=== PATIENT | female | born 1940 | race Caucasian/White ===

== ENCOUNTER → 2017-06-29 | Outpatient (CLI) | payer MEDICARE, MEDICAID ==
[2014-04-16 09:37] VITALS: BMI 29.8
[~2017-06-29] MED LIST: ACE325 PO; ASPI-715 PO; ATOR10TA24 PO; ATOR20TA22 PO; Aspirin PO; BUPXL150 PO; CARB400T8 PO; CEP250 PO; CEPH500T7 PO; CLON-303 PO; Cefuroxime Axetil PO; DIVA-1 PO; DIVA250T86 PO; DONE10TA PO; FOL1 PO; LAM25 PO; LAMO100T52 PO; LEVO100T95 PO; LEVO150T72 PO; LIT300 PO; METH15TA4 PO; METH25VI31 SC; METHOTREXATE; MULT-820 PO; NAPR220C13 PO; NIT100 PO; OMEG-84 PO; OMEG-95 PO; PAR20 PO; PREDNISONE; PRIM50TA42 PO; QUET200T29 PO; SERT-181 PO; SERT-182 PO; TOPI25CA9 PO; [UNRECOGNIZED DRUG - CODE] PO
[2017-06-29 09:16] LABS: LDL CHOLESTEROL 115 mg/dl
== END ==
LOC: ZZSPRING 00:41
PROVIDERS: ATTEND Physician Assistant
DX: E78.00 Pure hypercholesterolemia, unspecified (principal); E11.9 Type 2 diabetes mellitus without complications; E03.9 Hypothyroidism, unspecified
CPT/HCPCS: 36415; 82040; 82247; 82310; 82374; 82435; 82465; 82565; 82947; 83036; 83718; 84075; 84132; 84155; 84295; 84443; 84450; 84460; 84478; 84520

== ENCOUNTER → 2017-07-13 | Outpatient (CLI) | payer MEDICARE, MEDICAID ==
[2014-04-16 09:37] VITALS: BMI 29.8
[2017-07-13 08:48] LABS: LDL CHOLESTEROL 87 mg/dl
== END ==
LOC: ZZSPRING 07-12 07:53
PROVIDERS: ATTEND Physician Assistant
DX: E78.00 Pure hypercholesterolemia, unspecified (principal); E11.9 Type 2 diabetes mellitus without complications; E03.9 Hypothyroidism, unspecified
CPT/HCPCS: 36415; 82040; 82247; 82310; 82374; 82435; 82465; 82565; 82947; 83036; 83718; 84075; 84132; 84155; 84295; 84443; 84450; 84460; 84478; 84520

== ENCOUNTER → 2017-10-05 | Outpatient (CLI) | payer MEDICARE, MEDICAID ==
[2014-04-16 09:37] VITALS: BMI 29.8
== END ==
LOC: ZZSPRING 01:36
PROVIDERS: ATTEND Physician Assistant
DX: E78.00 Pure hypercholesterolemia, unspecified (principal); E11.9 Type 2 diabetes mellitus without complications; E03.9 Hypothyroidism, unspecified
CPT/HCPCS: 36415; 82465; 83036; 83718; 84443; 84478

== ENCOUNTER → 2017-11-30 | Outpatient (CLI) | payer MEDICARE, MEDICAID ==
[2014-04-16 09:37] VITALS: BMI 29.8
--- NOTE | 2017-11-30 17:44 | RADIOLOGY IMAGING REPORT ---
FACILITY: [facility] - [place] PATIENT NAME: Christine Ornelas : 1940 MR: [id number] V: [id number] EXAM DATE: ORDERING PHYSICIAN: QUIN MARIANO TECHNOLOGIST: Location: [facility] - [place] Patient: Christine Ornelas : 1940 Visit/Account:[id number] Date of Sevice: 11/30/2017 Exam type: CERVICAL SPINE 2 OR 3 VIEW History: Neck pain Comparison: September 21, 2012. Findings: Three views of the cervical spine demonstrate moderate degenerative changes at C5-6 and C6-7 that aubrey ears similar to the prior study. There is a 2 mm anterior listhesis of C4 with respect to C5 likely degenerative. There is no evidence of acute fractures or subluxations or prevertebral soft tissue sw elling. IMPRESSION: 1. Spondylotic changes of the cervical spine most prominent at C5-6 and C6-7 Report Dictated By: Concepcion Brito MD at 11/30/2017 5:39 PM Report E-Signed By: Concepcion Brito MD at 11/30/2017 5:41 PM WSN:[email or web address]
== END ==
LOC: RAD 16:38
PROVIDERS: ATTEND Family Medicine
DX: M54.2 Cervicalgia (principal)
CPT/HCPCS: 72040

== ENCOUNTER → 2018-05-10 | Outpatient (CLI) | payer MEDICARE, MEDICAID ==
[2014-04-16 09:37] VITALS: BMI 29.8
--- NOTE | 2018-05-10 15:29 | RADIOLOGY IMAGING REPORT ---
FACILITY: [facility] - [place] PATIENT NAME: Christine Ornelas : 1940 MR: [id number] V: [id number] EXAM DATE: ORDERING PHYSICIAN: MARK ACOSTA TECHNOLOGIST: Location: [facility] Patient: Christine Ornelas : 1940 Visit/Account:[id number] Date of Sevice: 05/10/2018 Exam type: CHEST PA LAT History: Bronchitis Comparison: March 24, 2016. Findings: There is mild increased peribronchial thickening seen in the lower lung cortez, left greater than rig ht. This corresponds to the clinical history of bronchitis. No lobar infiltrates are seen. There i s no evidence of pleural effusions or overt pulmonary edema. Cardiac silhouette is normal in size. IMPRESSION: 1. Mild peribronchial thickening in the lower lung cortez, left greater than right consistent with t he history of bronchitis Report Dictated By: Concepcion Brito MD at 05/10/2018 3:13 PM Report E-Signed By: Concepcion Brito MD at 05/10/2018 3:14 PM WSN:[email or web address]
== END ==
LOC: RAD 10:45
PROVIDERS: ATTEND Physician Assistant
DX: J20.9 Acute bronchitis, unspecified (principal)
CPT/HCPCS: 71046

== ENCOUNTER 2018-06-26 20:49 | Inpatient (IN) | payer MEDICARE, MEDICAID ==
[~2018-06-26] VITALS: Ht 165.1 cm; Wt 75.3 kg
[~2018-06-26 20:49] MED LIST changes: -ACET-1966 PO; -BENZ100C4 PO; -CYCL10TA29 PO; -DEXT1DRO15 OP; -DEXT237L PO; -DOCU-416 PO; -DuoNeb INH; -FLAV100L PO; -FLUT1AER INH; -GUAI600T57 PO; -LEVO-3 PO; -LIDO15SO2 TOP; -LOPE2CAP88 PO; -MAG-65 PO; -MELO-205 PO; -OSE75 PO; -OXYB5TAB86 PO; -PIOG30TA71 PO; -POLY17PO25 PO; -PRIM50TA FT; -QUET50TA PO; -SERT25TA90 PO; -SIMV-54 PO; -SITA100T PO; -SODI45SP29
--- NOTE | 2018-06-26 20:53 | ER Report ---
History and Physical Time Seen By MD: 20:53 HPI/ROS CHIEF COMPLAINT: Fall, fever 102 HISTORY OF PRESENT ILLNESS: 78-year-old female brought from [facility] after a fall. Patient has a loose tooth is bloody in her mouth. Nursing staff report that she is more hypoxic than usual on her 3 L.. They turned her up to 4 to get her saturations in the upper 80s. EMS administered high flow O2 to get her saturations into the 90s. She voices no complaints, but has dementia. She is also hard of hearing. See senior living paperwork for additional information. Patient is DO NOT RESUSCITATE status. EMS noted loose tooth and bleeding in her mouth. She was placed in a cervical spine collar by EMS. Patient appears in no acute distress on arrival. His mentating normally, but is very hard of hearing. REVIEW OF SYSTEMS: Respiratory: As above Cardiovascular: No chest pain, no palpitations. Gastrointestinal: No vomiting, no abdominal pain. Musculoskeletal: No back pain. Allergies: Coded Allergies: No Known Allergies (Verified Allergy, Mild, 09/07/10) Home Meds Active Scripts Atorvastatin Calcium (LIPITOR) 10 Mg Tab, 20 MG PO QHS, #30 TAB Prov:NGOC VAZQUEZ MD 04/16/14 Reported Medications Sodium Chloride (Saline Mist) 0.65 % [place], 1-2 NA QID 06/27/18 Dextromethorphan Hb/Doxylamine (Robitussin Nighttime Cough Dm) 30 Mg-12.5 Mg/10 Ml Liquid, 5 ML PO Q4H PRN for COUGH 06/27/18 Guaifenesin (MUCINEX) 600 Mg Tablet.er, 600 MG PO BID PRN for COUGH 06/27/18 Polyethylene Glycol 3350 (MIRALAX) 17 Gm Powd.pack, 17 GM PO PRN PRN for CONSTIPATION, PKT 06/27/18 Mag Hydrox/Aluminum Hyd/Simeth (Maalox Advanced Suspension) 200 Mg-200 Mg-20 Mg/5 Ml Oral.susp, 15 ML PO Q4H PRN for GAS/HEARTBURN 06/27/18 Lidocaine HCl VISCOUS 2% (Lidocaine Viscous) 2 % Solution, TOP PRN PRN for PAIN 06/27/18 [DuoNeb] No Conflict Check, INH PRN for SHORTNESS OF BREATH 06/27/18 Loperamide Hcl (LOPERAMIDE) 2 Mg Capsule, 2 MG PO BID PRN for DIARRHEA, CAPSULE 06/27/18 Cyclobenzaprine Hcl (CYCLOBENZAPRINE HCL) 10 Mg Tablet, 5 MG PO BID PRN for MUSCLE SPASMS, #9 TAB 06/27/18 Docusate Sodium (COLACE) 100 Mg Capsule, 50 MG PO DAILY PRN for CONSTIPATION, CAPSULE 06/27/18 Bay Flavor (BAY CONCENTRATE) 100 Ml Syrup, 100 ML PO HS PRN for COUGH 06/27/18 Benzonatate 100 Mg Cap (TESSALON PERLE 100 MG CAP) 100 Mg Capsule, 100 MG PO HS PRN for COUGH, #15 CAP 06/27/18 Dextran 70/Hypromellose (ARTIFICIAL TEARS) 1 Each Droperette, 1 EACH OP 06/27/18 Acetaminophen (TYLENOL) 325 Mg Tablet, 325-650 MG PO Q4H PRN for PAIN OR FEVER 100 OR GREATER, TAB 06/27/18 Simvastatin (SIMVASTATIN) 40 Mg Tablet, 40 MG PO HS, TAB 06/27/18 Sertraline Hcl (SERTRALINE HCL) 25 Mg Tablet, 1 TAB PO QDAY, TAB 06/27/18 Sertraline Hcl (SERTRALINE HCL) 100 Mg Tablet, 1 TAB PO QDAY, TAB 06/27/18 Quetiapine Fumarate (QUETIAPINE FUMARATE) 50 Mg Tablet, 50 MG PO HS 06/27/18 Primidone (PRIMIDONE) 50 Mg Tab, 25 MG FT, TAB 06/27/18 Pioglitazone Hcl (PIOGLITAZONE HCL) 30 Mg Tablet, 30 MG PO QDAY 06/27/18 Oxybutynin Chloride (OXYBUTYNIN CHLORIDE) 5 Mg Tablet, 5 MG PO BID, TAB 06/27/18 Meloxicam (MELOXICAM) 7.5 Mg Tablet, 7.5 MG PO QDAY 06/27/18 Levothyroxine Sodium (LEVOTHYROXINE SODIUM) 100 Mcg Tablet, 88 MCG PO QDAY, TAB 06/27/18 Sitagliptin Phosphate (JANUVIA) 100 Mg Tablet, 100 MG PO QDAY 06/27/18 Fluticasone/Vilanterol 100/25 Mcg/Inh (BREO ELLIPTA 100/25 MCG) 1 Each Aer.pow.ba, 1 INH INH QDAY, INH 06/27/18 Methotrexate Sodium (METHOTREXATE) 25 Mg/1 Ml Vial, 0.4 ML SC QWEEK, VIAL 12/18/14 Donepezil Hcl (Donepezil Hcl) 10 Mg Tablet, 10 MG PO HS 09/07/10 Lamotrigine (Lamotrigine) 100 Mg Tablet, 150 MG PO HS 09/09/10 Folic Acid (Folic Acid) 1 Mg Tab, 1 MG PO QDAY 09/07/10 Cholecalciferol (Vitamin D3) 1,000 Unit Capsule, 2000 UNIT PO QDAY 09/07/10 Discontinued Reported Medications Meloxicam (MELOXICAM) 7.5 Mg Tablet, 7.5 MG PO QDAY 06/27/18 Sertraline Hcl (SERTRALINE HCL) 100 Mg Tablet, 1 TAB PO HS, TAB TAKE ONE TABLET BY MOUTH EVERY DAY 04/12/14 Divalproex Sodium (DEPAKOTE ER) 500 Mg Tab.er.24h, 500 MG PO HS, TAB TAKE 1 TABLET BY MOUTH DAILY 04/12/14 [place]-3 Fatty Acids/Fish Oil ([place]-3 1,000 Mg Softgel) 1 Each Capsule, 2 EACH PO BID 09/09/10 Levothyroxine Sodium (Synthroid) 100 Mcg Tablet, 100 MCG PO HS 09/07/10 Quetiapine Fumarate (Seroquel) 200 Mg Tablet, 100 MG PO HS 09/09/10 Primidone (Primidone) 50 Mg Tablet, 75 MG PO HS 09/09/10 Discontinued Scripts [Cefuroxime Axetil] 250 MG TAB No Conflict Check, 250 MG PO BID, #10 TAB Prov:NGOC VAZQUEZ MD 04/16/14 [Aspirin] 81 MG TABEC No Conflict Check, 81 MG PO QDAY, #30 TAB Prov:NGOC VAZQUEZ MD 04/16/14 Past Medical/Surgical History Medical problem list copied from discharge summary March 2018 (1) Urinary tract infection Status: Acute Hospital Course & Plan: The patient was admitted with weakness and UTI. A urine culture was positive for AEROCOCCUS URINAE, but sensitivities were not yet available at the time of discharge as this bacteria could not be tested with methods used at [facility]. Per literature review, this bacteria should be sensitive to the penicillin family. She was placed on treatment with ceftriaxone and vancomycin initially intravenously. The vancomycin was stopped on 04/14. She improved and then was switched to oral medication today, Ceftin 250mg bid. The patient will go to [facility] upon discharge. (2) Weakness Status: Acute Hospital Course & Plan: The patient was noted to have significant generalized weakness on admission. PT and OT were consulted and the patient received therapy. She had improvement of her weakness. She will go to [facility] upon discharge. (3) Bipolar disorder Status: Chronic Hospital Course & Plan: She will continue on chronic treatment with Depakote, Seroquel, and Lamictal at discharge. (4) History of pulmonary embolism Status: Chronic Hospital Course & Plan: She was placed on Lovenox prophylaxis during her admission. (5) Essential tremor Status: Chronic Hospital Course & Plan: She is on chronic treatment with Primidone and will continue this on discharge. (6) Hyperlipidemia Status: Chronic Hospital Course & Plan: She is on chronic treatment with Atorvastatin and will continue this at discharge. (7) Hypothyroid Status: Chronic Hospital Course & Plan: She is on chronic treatment with Synthroid and will continue this at discharge. (8) Rheumatoid arthritis Status: Chronic Hospital Course & Plan: She is on chronic treatment with methotrexate, but this was placed on hold secondary to her infection. She can resume it the week of the 22 of April. Departure Reviewed Nurses Notes: Yes Old Medical Records Reviewed: Yes Hx Smoking: No Hx Substance Use Disorder: No Hx Alcohol Use: Yes (OCC WINE) Constitutional Vital Sign - Last 24 Hours 06/26/18 06/26/18 06/26/18 06/26/18 20:57 21:00 21:02 21:15 Temp 102.5 Pulse 83 Resp 18 B/P (MAP) 127/65 127/65 (85) 129/66 (87) Pulse Ox 87 O2 Delivery Nasal Cannula O2 Flow Rate 10.0 06/26/18 06/26/18 06/26/18 06/26/18 21:19 21:30 21:46 21:49 Pulse 83 78 Resp 0 27 B/P (MAP) ???/??? (1665) 121/62 (81) Pulse Ox 92 92 06/26/18 06/26/18 06/26/18 06/26/18 22:00 22:15 22:15 22:19 Pulse 77 Resp 29 B/P (MAP) 114/63 (80) 120/51 (74) Pulse Ox 91 O2 Flow Rate 4.0 3/07/1206/26/18 06/26/18 06/26/18 22:30 22:35 22:45 23:00 Pulse 74 Resp 26 B/P (MAP) 119/70 (86) 124/65 (84) 120/59 (79) Pulse Ox 91 06/26/18 06/26/18 06/26/18 06/26/18 23:05 23:15 23:30 23:35 Pulse 73 70 Resp 11 39 B/P (MAP) 115/61 (79) 123/64 (83) Pulse Ox 91 93 06/26/18 06/26/18 06/27/18 23:40 23:45 00:00 Pulse 75 Resp 10 B/P (MAP) 116/56 (76) 116/59 (78) Pulse Ox 88 Physical Exam General Appearance: The patient is alert, has no immediate need for airway protection and no current signs of toxicity. Vital signs stable, fever 102, pulse ox stable on high flow O2 4 L by simple mask on palpation of the head and neck reveal no tenderness or trauma HEENT: Pupils equal and round no injection. TMs normal, oropharynx with mild erythema, mucous membranes are slightly dry Respiratory: Chest is non tender, lungs are clear to auscultation. No wheezing or rails appreciated Cardiac: regular rate and rhythm, distant heart sounds Gastrointestinal: Abdomen is soft and non tender, no masses, bowel sounds normal. Musculoskeletal: Neck: Neck is supple and non tender. No lymphadenopathy, no JVD Extremities have full range of motion and are non tender. No edema, no calf tenderness Skin: No rashes or lesions. DIFFERENTIAL DIAGNOSIS: After history and physical exam differential diagnosis was considered for adult fever including but not limited to viral syndromes including influenza, urinary tract infection, pneumonia and sepsis.fall in the elderly including but not limited to intracranial injury, long bone and pelvic bone fracture, spinal injury, and intrathoracic injury. Medical Decision Making Data Points Result Diagram: 06/26/18210906/26/182109 Laboratory Hematology Test 06/26/18 21:10 06/26/18 21:15 06/26/18 22:18 Red Blood Count 4.03 M/uL (4.17-5.56) Mean Corpuscular Volume 89.8 fL (80.0-96.0) Mean Corpuscular Hemoglobin 30.2 pg (26.0-33.0) Mean Corpuscular Hemoglobin Concent 33.6 g/dL (32.0-36.0) Red Cell Distribution Width 20.3 % (11.5-14.5) Mean Platelet Volume 8.0 fL (7.2-11.1) Neutrophils (%) (Auto) 93.7 % (39.4-72.5) Lymphocytes (%) (Auto) 1.7 % (17.6-49.6) Monocytes (%) (Auto) 3.3 % (4.1-12.4) Eosinophils (%) (Auto) 0.3 % (0.4-6.7) Basophils (%) (Auto) 1.0 % (0.3-1.4) Nucleated RBC Relative Count (auto) 0.1 /100WBC Neutrophils # (Auto) 5.8 K/uL (2.0-7.4) Lymphocytes # (Auto) 0.1 K/uL (1.3-3.6) Monocytes # (Auto) 0.2 K/uL (0.3-1.0) Eosinophils # (Auto) 0.0 K/uL (0.0-0.5) Basophils # (Auto) 0.1 K/uL (0.0-0.1) Nucleated RBC Absolute Count (auto) 0.01 K/uL Peripheral Blood Smear No Y/N Sodium Level 130 mmol/L (137-145) Potassium Level 4.3 mmol/L (3.5-5.0) Chloride Level 95 mmol/L (98-107) Carbon Dioxide Level 26 mmol/L (22-31) Blood Urea Nitrogen 13 mg/dl (7-18) Creatinine 0.60 mg/dl (0.52-1.04) Glomerular Filtration Rate Calc > 60.0 Random Glucose 220 mg/dl (75-110) Lactate 0.9 mmol/L (0.7-2.1) Calcium Level 9.2 mg/dl (8.4-10.2) Total Bilirubin 0.6 mg/dl (0.2-1.3) Aspartate Amino Transf (AST/SGOT) 39 U/L (0-35) Alanine Aminotransferase (ALT/SGPT) 34 U/L (0-56) Alkaline Phosphatase 81 U/L (0-126) Total Protein 6.2 g/dl (6.3-8.2) Albumin 3.6 g/dl (3.5-5.0) Valproic Acid (Depakene) Level < 10.0 ug/ml Influenza Virus Type A (PCR) Positive (NEGATIVE) Influenza Virus Type B (PCR) Negative (NEGATIVE) Urine Color Yellow Urine Clarity Slightly-cloudy Urine pH 5.0 pH (4.8-9.5) Urine Specific [place] 1.019 Urine Protein Negative mg/dL (NEGATIVE) Urine Glucose (UA) 50 mg/dL (NEGATIVE) Urine Ketones Trace mg/dL (NEGATIVE) Urine Blood Negative (NEGATIVE) Urine Nitrite Positive (NEGATIVE) Urine Bilirubin Negative (NEGATIVE) Urine Urobilinogen Negative mg/dL (0.2-1.9) Urine Leukocyte Esterase Moderate (NEGATIVE) Urine RBC 7 /HPF (0-2/HPF) Urine WBC 199 /HPF (0-5/HPF) Urine Squamous Epithelial Cells Many /LPF (NONE-FEW) Urine Transitional Epithelial Cells Moderate /LPF (NONE-FEW) Urine Bacteria Many /HPF (NONE-FEW) Urine Mucus Few /HPF (NONE-FEW) Chemistry Test 06/26/18 21:10 06/26/18 21:15 06/26/18 22:18 White Blood Count 6.2 k/uL (4.5-11.0) Red Blood Count 4.03 M/uL (4.17-5.56) Hemoglobin 12.2 g/dL (12.0-16.0) Hematocrit 36.2 % (34.0-47.0) Mean Corpuscular Volume 89.8 fL (80.0-96.0) Mean Corpuscular Hemoglobin 30.2 pg (26.0-33.0) Mean Corpuscular Hemoglobin Concent 33.6 g/dL (32.0-36.0) Red Cell Distribution Width 20.3 % (11.5-14.5) Platelet Count 192 K/uL (150-450) Mean Platelet Volume 8.0 fL (7.2-11.1) Neutrophils (%) (Auto) 93.7 % (39.4-72.5) Lymphocytes (%) (Auto) 1.7 % (17.6-49.6) Monocytes (%) (Auto) 3.3 % (4.1-12.4) Eosinophils (%) (Auto) 0.3 % (0.4-6.7) Basophils (%) (Auto) 1.0 % (0.3-1.4) Nucleated RBC Relative Count (auto) 0.1 /100WBC Neutrophils # (Auto) 5.8 K/uL (2.0-7.4) Lymphocytes # (Auto) 0.1 K/uL (1.3-3.6) Monocytes # (Auto) 0.2 K/uL (0.3-1.0) Eosinophils # (Auto) 0.0 K/uL (0.0-0.5) Basophils # (Auto) 0.1 K/uL (0.0-0.1) Nucleated RBC Absolute Count (auto) 0.01 K/uL Peripheral Blood Smear No Y/N Glomerular Filtration Rate Calc > 60.0 Lactate 0.9 mmol/L (0.7-2.1) Calcium Level 9.2 mg/dl (8.4-10.2) Total Bilirubin 0.6 mg/dl (0.2-1.3) Aspartate Amino Transf (AST/SGOT) 39 U/L (0-35) Alanine Aminotransferase (ALT/SGPT) 34 U/L (0-56) Alkaline Phosphatase 81 U/L (0-126) Total Protein 6.2 g/dl (6.3-8.2) Albumin 3.6 g/dl (3.5-5.0) Valproic Acid (Depakene) Level < 10.0 ug/ml Influenza Virus Type A (PCR) Positive (NEGATIVE) Influenza Virus Type B (PCR) Negative (NEGATIVE) Urine Color Yellow Urine Clarity Slightly-cloudy Urine pH 5.0 pH (4.8-9.5) Urine Specific [place] 1.019 Urine Protein Negative mg/dL (NEGATIVE) Urine Glucose (UA) 50 mg/dL (NEGATIVE) Urine Ketones Trace mg/dL (NEGATIVE) Urine Blood Negative (NEGATIVE) Urine Nitrite Positive (NEGATIVE) Urine Bilirubin Negative (NEGATIVE) Urine Urobilinogen Negative mg/dL (0.2-1.9) Urine Leukocyte Esterase Moderate (NEGATIVE) Urine RBC 7 /HPF (0-2/HPF) Urine WBC 199 /HPF (0-5/HPF) Urine Squamous Epithelial Cells Many /LPF (NONE-FEW) Urine Transitional Epithelial Cells Moderate /LPF (NONE-FEW) Urine Bacteria Many /HPF (NONE-FEW) Urine Mucus Few /HPF (NONE-FEW) Toxicology Test 06/26/18 21:10 Valproic Acid (Depakene) Level < 10.0 ug/ml Urinalysis Test 06/26/18 22:18 Urine Color Yellow Urine Clarity Slightly-cloudy Urine pH 5.0 pH (4.8-9.5) Urine Specific [place] 1.019 Urine Protein Negative mg/dL (NEGATIVE) Urine Glucose (UA) 50 mg/dL (NEGATIVE) Urine Ketones Trace mg/dL (NEGATIVE) Urine Blood Negative (NEGATIVE) Urine Nitrite Positive (NEGATIVE) Urine Bilirubin Negative (NEGATIVE) Urine Urobilinogen Negative mg/dL (0.2-1.9) Urine Leukocyte Esterase Moderate (NEGATIVE) Urine RBC 7 /HPF (0-2/HPF) Urine WBC 199 /HPF (0-5/HPF) Urine Squamous Epithelial Cells Many /LPF (NONE-FEW) Urine Transitional Epithelial Cells Moderate /LPF (NONE-FEW) Urine Bacteria Many /HPF (NONE-FEW) Urine Mucus Few /HPF (NONE-FEW) EKG/Imaging EKG Interpretation 12 lead EK Rhythm: normal sinus rhythm Raymond: normal QRS: normal ST segments: normal, no acute ischemic findings Imaging X-ray: Angle view portable chest x-ray was obtained. I viewed the images myself on the PACS system. My interpretation of the images is: No raudel infiltrate, there is some haziness to the right lung field. The radiologist interpretation had no clinically significant variation from this interpretation. Results: CT scan of the head and cervical spine without contrast was obtained. The results of the study are no acute traumatic findings, maxillary sinus disease noted. Please see report. The study was read by the radiologist. I viewed the images myself on the PACS system. ED Course/Re-evaluation Clinical Indication for ER IV: Hydration, IV Access ED Course Patient was admitted to an examination room. H&P was done. The differential diagnoses was considered. Patient was brought from care center after a fall. Patient noted behind more hypoxic than usual on her 3 L. She was increased to 4 L by nasal cannula with borderline oxygen saturations. Patient was noted to have a tooth injury by EMS. They placed her in a cervical collar. On arrival. Palpation of the head reveals no tenderness, but a head CT and cervical spine CT are ordered. They're unremarkable. Diagnostic evaluation is undertaken for a fever of 102. Patient's white blood cell count is normal, but there is a left shift. Her lactate returns normal. Patient is cultured. A catheter urine was obtained which showed infection. Rapid influenza was positive for influenza A. She was treated with Tamiflu 75 mg. She was given 1 g of Rocephin to cover her for urinary tract infection. Her chest x-ray showed no infiltrates. Patient still requiring significant O2 beyond her normal baseline at 4 L by simple mask, making saturations in the low 90s. Her case was discussed with Dr. Maria hospitalist on-call, who evaluated the patient and decided to admit. 06/26/2018 11:03:59 pm case discussed with Dr. Maria hospitalist on-call, who will come evaluate the patient and consideration of admission. Decision to Disposition Date: Jun 26, 2018 Decision to Disposition Time: 23:03 Depart Departure Latest Vital Signs Vital Signs Date Time Temp Pulse Resp B/P (MAP) Pulse Ox O2 Delivery O2 Flow Rate FiO2 06/27/18 00:00 116/59 (78) 06/26/18 23:40 75 10 88 06/26/18 22:15 4.0 06/26/18 20:57 102.5 Nasal Cannula Impression: Primary Impression: Hypoxia Additional Impressions: Influenza A Urinary tract infection Fall Hyponatremia Condition: Improved Disposition: Admitted from ER Problem Qualifiers Additional Impressions: Urinary tract infection Urinary tract infection type: acute cystitis Hematuria presence: without hematuria Qualified Codes: N30.00 - Acute cystitis without hematuria Fall Encounter type: initial encounter Qualified Codes: W19.XXXA - Unspecified fall, initial encounter TABITHA WESTON DO Jun 26, 2018 20:53
[2018-06-26] MEDS ORDERED: NS(*) 0.9% 1000 ML BAG 1,000 ML IV ONE (21:05)
[2018-06-26] MEDS ORDERED: ACETAMINOPHEN 325 MG TAB PO ONE (21:05)
[2018-06-26 21:24] LABS: PLATELET COUNT, AUTOMATED 192 K/uL (150-450)
--- NOTE | 2018-06-26 22:11 | RADIOLOGY IMAGING REPORT ---
FACILITY: [facility] [place] PATIENT NAME: Christine Onrelas : 1940 MR: [id number] V: [id number] EXAM DATE: ORDERING PHYSICIAN: TABITHA WESTON TECHNOLOGIST: [place] [facility] [place] : 1940 Visit/Account:[id number] Date of Sevice: 06/26/2018 CT Head without contrast and CT Cervical spine: Indication: Fever. Fall. Comparison: MR brain 01/04/2014. Technique: CT head: Axial CT images were obtained through the brain from the skull base to the verte x without administration of IV contrast. Reformatted coronal and sagittal images were also obtained. Technique: CT cervical spine: Axial CT imaging of the cervical spine was performed. 2-D sagittal and coronal CT reformats were also obtained. One of the following dose optimization techniques was utilized in the performance of this exam: Autom ated exposure control; adjustment of the mA and/or kV according to the patient's size; or use of an i terative reconstruction technique. Specific details can be referenced in the facility's radiology C T exam operational policy. FINDINGS: CT head: No intracranial bleed, midline shift, mass effect, extra-axial fluid collection or hydrocephalus. Age -related cerebral atrophy. Periventricular white matter ischemic changes consistent small vessel dise ase. Toro/white matter differentiation appears normal. Mild bilateral internal carotid artery calcifi cations. The bony structures show no fractures or lesions. Mild mucosal thickening/fluid seen in the right maxillary sinus. The remaining sinuses and mastoids visualized are clear. CT cervical spine: The vertebral bodies are aligned. No fracture or facet dislocation. No bony lesions. There is diffuse mild to moderate degenerative changes including disc space narrowing, endplate changes, osteophytes and facet arthropathy. No bony canal stenosis. Multilevel neural foramina narrowing. The endplates ar e maintained. No obvious disc herniation. Prevertebral soft tissues and surrounding soft tissues are unremarkable. Lung apices are clear. IMPRESSION: 1. Senescent changes without acute abnormality. No skull fracture. 2. No acute osseous or acute alignment abnormality of the cervical spine. Degenerative changes. 3. Right maxillary sinus disease. Report Dictated By: Jaswinder Oakley at 06/26/2018 9:57 PM Report E-Signed By: Jaswinder Oakley at 06/26/2018 10:07 PM WSN:[id number]
--- NOTE | 2018-06-26 22:12 | RADIOLOGY IMAGING REPORT ---
FACILITY: [facility] PATIENT NAME: Christine Ornelas : 1940 MR: [id number] V: [id number] EXAM DATE: ORDERING PHYSICIAN: TABITHA WESTON TECHNOLOGIST: Location: [facility] Patient: Christine Ornelas : 1940 Visit/Account:[id number] Date of Sevice: 06/26/2018 CT Head without contrast and CT Cervical spine: Indication: Fever. Fall. Comparison: MR brain 01/04/2014. Technique: CT head: Axial CT images were obtained through the brain from the skull base to the verte x without administration of IV contrast. Reformatted coronal and sagittal images were also obtained. Technique: CT cervical spine: Axial CT imaging of the cervical spine was performed. 2-D sagittal and coronal CT reformats were also obtained. One of the following dose optimization techniques was utilized in the performance of this exam: Autom ated exposure control; adjustment of the mA and/or kV according to the patient's size; or use of an i terative reconstruction technique. Specific details can be referenced in the facility's radiology C T exam operational policy. FINDINGS: CT head: No intracranial bleed, midline shift, mass effect, extra-axial fluid collection or hydrocephalus. Age -related cerebral atrophy. Periventricular white matter ischemic changes consistent small vessel dise ase. Toro/white matter differentiation appears normal. Mild bilateral internal carotid artery calcifi cations. The bony structures show no fractures or lesions. Mild mucosal thickening/fluid seen in the right maxillary sinus. The remaining sinuses and mastoids visualized are clear. CT cervical spine: The vertebral bodies are aligned. No fracture or facet dislocation. No bony lesions. There is diffuse mild to moderate degenerative changes including disc space narrowing, endplate changes, osteophytes and facet arthropathy. No bony canal stenosis. Multilevel neural foramina narrowing. The endplates ar e maintained. No obvious disc herniation. Prevertebral soft tissues and surrounding soft tissues are unremarkable. Lung apices are clear. IMPRESSION: 1. Senescent changes without acute abnormality. No skull fracture. 2. No acute osseous or acute alignment abnormality of the cervical spine. Degenerative changes. 3. Right maxillary sinus disease. Report Dictated By: Jaswinder Oakley at 06/26/2018 9:57 PM Report E-Signed By: Jaswinder Oakley at 06/26/2018 10:07 PM WSN:[id number]
--- NOTE | 2018-06-26 22:15 | RADIOLOGY IMAGING REPORT ---
FACILITY: [facility] PATIENT NAME: Christine Ornelas : 1940 MR: [id number] V: [id number] EXAM DATE: ORDERING PHYSICIAN: TABITHA WESTON TECHNOLOGIST: Location: [facility] [place] Patient: Christine Ornelas : 1940 Visit/Account:[id number] Date of Sevice: 06/26/2018 PORTABLE CHEST: Indication: Fever. Possible injury. Technique: A single frontal film was obtained. Comparison: 05/10/2018 Skeletal and soft tissue structures: Intact and unchanged. Heart and mediastinum: Stable. Lung crotez: Well-expanded. There are chronic increased interstitial markings. No focal consolidation or volume loss is identified. Pleural spaces: Unremarkable. Impression: No acute process or significant change is identified. Report Dictated By: Tae Negrete MD at 06/26/2018 10:10 PM Report E-Signed By: Tae Negrete MD at 06/26/2018 10:12 PM WSN:[id number]
[2018-06-26] MEDS ORDERED: OSELTAMIVIR PHOS 75 MG CAP PO ONE (22:40)
[2018-06-26] MEDS ORDERED: cefTRIAXone 1 GM VIAL IVP ONE (22:40)
--- NOTE | 2018-06-26 23:33 | EKG ---
[place] [facility] [place]IENT NAME: DILLON STUBBS : [id number] MR: [id number] V: [id number] EXAM DATE: ORDERING PHYSICIAN: TABITHA WESTON TECHNOLOGIST: HUGO Test Reason : FALL Blood Pressure : / mmHG Vent. Rate : 082 BPM Atrial Rate : 082 BPM P-R Int : 160 ms QRS Dur : 094 ms QT Int : 362 ms P-R-T Axes : 059 056 047 degrees QTc Int : 422 ms Normal sinus rhythm Normal ECG When compared with ECG of 11-APR-2014 10:45, No significant change was found Confirmed by QUINTIN LEMUS ([id number]) on 06/26/2018 11:40:16 PM Referred By: Confirmed By:QUINTIN LEMUS
[2018-06-26] MEDS ORDERED: PROMETHAZINE 25 MG/ML 1 ML AMP IVP PRN (23:40)
[2018-06-26] MEDS ORDERED: INSULIN HUM LISPRO 100 UN/ML 3 ML VIAL SUBQ PRN (23:40)
[2018-06-26] MEDS ORDERED: QUEtiapine FUM 25 MG TAB PO SCH (23:40)
[2018-06-26] MEDS ORDERED: INFLUENZA VIRUS VAC 0.5ML SYR IM ONLY ONE (23:40)
[2018-06-26] MEDS ORDERED: ALBUTEROL 2.5 MG/3 ML NEB NEB PRN (23:40)
[2018-06-27] MEDS ORDERED: SERT-181 PO (00:04)
[2018-06-27] MEDS ORDERED: LEVO-3 PO (00:04)
[2018-06-27] MEDS ORDERED: CYCL10TA29 PO (00:04)
[2018-06-27] MEDS ORDERED: BENZ100C4 PO (00:04)
[2018-06-27] MEDS ORDERED: SITA100T PO (00:04)
[2018-06-27] MEDS ORDERED: FLUT1AER INH (00:04)
[2018-06-27] MEDS ORDERED: DEXT1DRO15 OP (00:04)
[2018-06-27] MEDS ORDERED: PIOG30TA71 PO (00:04)
[2018-06-27] MEDS ORDERED: QUET50TA PO (00:04)
[2018-06-27] MEDS ORDERED: MELO-205 PO ×2 (00:04)
[2018-06-27] MEDS ORDERED: LOPE2CAP88 PO (00:04)
[2018-06-27] MEDS ORDERED: PRIM50TA FT (00:04)
[2018-06-27] MEDS ORDERED: OXYB5TAB86 PO (00:04)
[2018-06-27] MEDS ORDERED: FLAV100L PO (00:04)
[2018-06-27] MEDS ORDERED: DOCU-416 PO (00:04)
[2018-06-27] MEDS ORDERED: ACET-1966 PO (00:04)
[2018-06-27] MEDS ORDERED: SIMV-54 PO (00:04)
[2018-06-27] MEDS ORDERED: SERT25TA90 PO (00:04)
--- NOTE | 2018-06-27 00:14 | History & Physical ---
History of Present Illness History of Present Illness 78yo female with bipolar disorder and a possible h/o asthma who was brought to the ER for a fall. She has been having vomiting for a couple of days. She normally wears O2, but was found off her O2 after her fall. She also has had a cough since April. She was reportedly treated with antibiotics in April for a pneumonia, per the patient's Granddaughter. She denies dysuria, but has had more frequency. No LE edema. The patient denies any h/o smoking. She doesn't drink alcohol. She lives at [facility]. In the ER, she was given Tamiflu, Rocephin, APAP and a liter of fluid. History Problems: (1) Rheumatoid arthritis Status: Chronic (2) Essential tremor Status: Chronic (3) Bipolar disorder Status: Chronic (4) Hyperlipidemia Status: Chronic (5) Hypothyroid Status: Chronic (6) History of pulmonary embolism Status: Chronic (7) History of UTI Status: Chronic Home Meds Active Scripts [Cefuroxime Axetil] 250 MG TAB No Conflict Check, 250 MG PO BID, #10 TAB Prov:NGOC VAZQUEZ MD 04/16/14 [Aspirin] 81 MG TABEC No Conflict Check, 81 MG PO QDAY, #30 TAB Prov:NGOC VAZQUEZ MD 04/16/14 Atorvastatin Calcium (LIPITOR) 10 Mg Tab, 20 MG PO QHS, #30 TAB Prov:NGOC VAZQUEZ MD 04/16/14 Reported Medications Methotrexate Sodium (METHOTREXATE) 25 Mg/1 Ml Vial, 0.4 ML SC QWEEK, VIAL 04/12/14 Sertraline Hcl (SERTRALINE HCL) 100 Mg Tablet, 1 TAB PO HS, TAB TAKE ONE TABLET BY MOUTH EVERY DAY 04/12/14 Divalproex Sodium (DEPAKOTE ER) 500 Mg Tab.er.24h, 500 MG PO HS, TAB TAKE 1 TABLET BY MOUTH DAILY 04/12/14 Laporte-3 Fatty Acids/Fish Oil (Laporte-3 1,000 Mg Softgel) 1 Each Capsule, 2 EACH PO BID 09/09/10 Levothyroxine Sodium (Synthroid) 100 Mcg Tablet, 100 MCG PO HS 09/07/10 Quetiapine Fumarate (Seroquel) 200 Mg Tablet, 100 MG PO HS 09/09/10 Donepezil Hcl (Donepezil Hcl) 10 Mg Tablet, 10 MG PO HS 09/07/10 Lamotrigine (Lamotrigine) 100 Mg Tablet, 100 MG PO HS 09/09/10 Primidone (Primidone) 50 Mg Tablet, 75 MG PO HS 09/09/10 Folic Acid (Folic Acid) 1 Mg Tab, 1 MG PO QDAY 09/07/10 Cholecalciferol (Vitamin D3) 1,000 Unit Capsule, 2000 UNIT PO QDAY 09/07/10 Allergies: Coded Allergies: No Known Allergies (Verified Allergy, Mild, 09/07/10) Hx Smoking: No Caffeine Intake: Coffee Caffeine/Cups Per Day: 1 cup a day Hx Alcohol Use: Yes (OCC WINE) Hx Substance Use Disorder: No Review of Systems All Systems Reviewed/Normal: Yes, Except as Noted Exam Vital Signs Vital Signs Date Time Temp Pulse Resp B/P (MAP) Pulse Ox O2 Delivery O2 Flow Rate FiO2 06/26/18 22:30 119/70 (86) 06/26/18 22:19 77 29 91 06/26/18 22:15 4.0 06/26/18 20:57 102.5 Nasal Cannula General Appearance: Alert, Awake, No Acute Distress Neuro: No Gross deficits Eyes: PERRLA ENT: Moist Mucous Membranes, Posterior Pharynx Clear, Other (Front right maxillary incisor and the tooth to the right are loose) Cardiovascular: Regular Rate and Rhythm Respiratory: Other (Diffuse coarse BS and exp wheezes) GI: Abd Soft and Non-Tender Extremities: No Edema Integumentary: No Cyanosis Medical Decision Making Data Points Result Diagram: 06/26/18210906/26/182109 Item Value Date Time Lactate 0.9 mmol/L 06/26/182109 Total Bilirubin 0.6 mg/dl 06/26/182109 Aspartate Amino Transf (AST/SGOT) 39 U/L H 06/26/182109 Alanine Aminotransferase (ALT/SGPT) 34 U/L 06/26/182109 Alkaline Phosphatase 81 U/L 06/26/182109 Calcium Level 9.2 mg/dl 06/26/182109 Valproic Acid (Depakene) Level < 10.0 ug/ml 06/26/182109 Influenza Virus Type A (PCR) Positive 06/26/182114 Neutrophils (%) (Auto) 93.7 % H 06/26/182109 Lymphocytes (%) (Auto) 1.7 % L 06/26/182109 Monocytes (%) (Auto) 3.3 % L 06/26/182109 Urine Leukocyte Esterase Moderate H 06/26/182217 Urine RBC 7 /HPF 06/26/182217 Urine WBC 199 /HPF 06/26/182217 Urine Squamous Epithelial Cells Many /LPF H 06/26/182217 Urine Transitional Epithelial Cells Moderate /LPF H 06/26/182217 Urine Bacteria Many /HPF H 06/26/182217 Urine Nitrite Positive H 06/26/182217 Urine Glucose (UA) 50 mg/dL H 06/26/182217 EKG / Imaging EKG Interpretation Vent. Rate : 082 BPM Atrial Rate : 082 BPM P-R Int : 160 ms QRS Dur : 094 ms QT Int : 362 ms P-R-T Axes : 059 056 047 degrees QTc Int : 422 ms Normal sinus rhythm Normal ECG When compared with ECG of 11-APR-2014 10:45, No significant change was found Confirmed by QUINTIN LEMUS ([id number]) on 06/26/2018 11:40:16 PM Imaging Cervical Spine CT - 1. Senescent changes without acute abnormality. No skull fr acture. 2. No acute osseous or acute alignment abnormality of the cervical spine. Degenerative changes. 3. Right maxillary sinus disease. CXR - No acute process or significant change is identified. Head CT - 1. Senescent changes without acute abnormality. No skull fracture. 2. No acute osseous or acute alignment abnormality of the cervical spine. Degen erative changes. 3. Right maxillary sinus disease. Assessment and Plan Problems: (1) Influenza A Status: Acute Assessment & Plan: She presented with a couple days of vomiting and had a fall today. She was febrile to 102.5 in the ER. She has had a cough since mid- March. Tamiflu has been started, which will be continued. She will given scheduled DuoNebs, and prn albuterol. Repeat CXR in the morning. (2) Hypoxia Status: Acute Assessment & Plan: She is chronically on 4 liters of O2. She initially required 10 liters in the ER, but now is down to 4 liters. She is chronically on Breo Ellipta, so will change to Advair in the hospital. She was wheezy on exam, but breathing comfortably. Nebs as above. Might consider steroids if lungs continue to be wheezy. (3) Hyponatremia Status: Acute Assessment & Plan: Mild. Will follow. (4) Pyuria Status: Acute Assessment & Plan: Increased urinary frequency recently. She was given a dose of Rocephin in the ER. Many SCE on UA. Will stop for now. Urine culture pe nding. (5) Bipolar disorder Status: Chronic Assessment & Plan: Continue chronic Sertraline, Seroquel, Lamotrigine. (6) Essential tremor Status: Chronic Assessment & Plan: Continue chronic Primidone. (7) T2DM (type 2 diabetes mellitus) Status: Chronic Assessment & Plan: Continue chronic Januvia and Actos. AC and HS glucose with SSI level 2 to cover. Copies to: MARK ACOSTA PA-C ; Venous Thromboembolism Antithrombotics Is Pt On Any Antithrombotics?: No Exam Sepsis Risk: No Definite Risk QUINTIN LEMUS MD Jun 27, 2018 00:14
[2018-06-27] MEDS ORDERED: POLY17PO25 PO (00:32)
[2018-06-27] MEDS ORDERED: MAG-65 PO (00:32)
[2018-06-27] MEDS ORDERED: DuoNeb INH (00:32)
[2018-06-27] MEDS ORDERED: DEXT237L PO (00:32)
[2018-06-27] MEDS ORDERED: LIDO15SO2 TOP (00:32)
[2018-06-27] MEDS ORDERED: GUAI600T57 PO (00:32)
[2018-06-27] MEDS ORDERED: SODI45SP29 (00:33)
[2018-06-27 00:37] VITALS: BP 105/55
[2018-06-27 03:12] VITALS: BP 120/54
[2018-06-27] MEDS: ALBUTEROL/IPRATROPIUM 3 ML NEB NEB SCH ×2 (05:43→11:00)
[2018-06-27] MEDS ORDERED: SALMETEROL/FLUTIC 250/50 1 INH INH SCH (06:00)
[2018-06-27] MEDS ORDERED: LEVOTHYROXINE SOD 0.088 MG TAB PO SCH (06:00)
--- NOTE | 2018-06-27 08:16 | RADIOLOGY IMAGING REPORT ---
FACILITY: [facility] - [place] PATIENT NAME: Christine Ornelas : 1940 MR: [id number] V: [id number] EXAM DATE: ORDERING PHYSICIAN: QUINTIN LEMUS [place]CHN[place] [facility] [place] Or[place] : 1940 Visit/Account:[id number] Date of Sevice: 06/27/2018 Study: Single portable view of the chest. Indication: Hypoxia Comparison study: June 26, 2018 Technique: Single AP view of the chest demonstrates the presence of a right upper lobe infiltrate. Th is is worsened as compared to the previous study. There is no evidence of pleural effusion or pneumot horax. The visualized bony structures are unremarkable. IMPRESSION: Right upper lobe infiltrate, most consistent with pneumonia. Report Dictated By: Osito Farias at 06/27/2018 8:06 AM Report E-Signed By: Osito Farias at 06/27/2018 8:11 AM WSN:[id number]
[2018-06-27 08:36] VITALS: BP 118/58
[2018-06-27] MEDS ORDERED: PRIMIDONE 50 MG TAB PO SCH (09:00)
[2018-06-27] MEDS ORDERED: SERTRALINE HCL 50 MG TAB PO SCH (09:00)
[2018-06-27] MEDS ORDERED: ENOXAPARIN 40 MG/0.4ML SYR SC SCH (09:00)
[2018-06-27] MEDS ORDERED: OSELTAMIVIR PHOS 75 MG CAP PO SCH (09:00)
[2018-06-27] MEDS ORDERED: FOLIC ACID 1 MG TAB PO SCH (09:00)
[2018-06-27] MEDS ORDERED: PIOGLITAZONE HCL 15 MG TAB PO SCH (09:00)
[2018-06-27] MEDS ORDERED: lamoTRIgine 100 MG TAB PO SCH (09:00)
[2018-06-27] MEDS ORDERED: DONEPEZIL HCL 5 MG TAB PO SCH (09:00)
[2018-06-27] MEDS ORDERED: OXYBUTYNIN CHL 5 MG TAB PO SCH (09:00)
[2018-06-27] MEDS ORDERED: OSE75 PO (10:18)
--- NOTE | 2018-06-27 10:22 | Hospitalist Depart ---
Discharge Summary Reason for Hosp/Final Diag: (1) Influenza A Status: Acute Hospital Course & Plan: She did test positive for influenza A. She has been started on Tamiflu. (2) Hypoxia Status: Acute Hospital Course & Plan: She is on chronic treatment with oxygen. (3) Hyponatremia Status: Acute Hospital Course & Plan: Stable and required no specific treatment. (4) Pyuria Status: Acute Hospital Course & Plan: She did have pyuria on a urine sample, but it was contaminated. (5) Bipolar disorder Status: Chronic Hospital Course & Plan: Continue chronic Sertraline, Seroquel, Lamotrigine. (6) Essential tremor Status: Chronic Hospital Course & Plan: Continue chronic Primidone. (7) T2DM (type 2 diabetes mellitus) Status: Chronic Hospital Course & Plan: Continue chronic Januvia and Actos. AC and HS glucose with SSI level 2 to cover. Departure Latest Vital Signs v Vital Signs 06/27/18 08:36 Temp 98.1 Pulse 72 Resp 24 B/P (MAP) 118/58 (78) Pulse Ox 92 O2 Delivery Nasal Cannula O2 Flow Rate 3.0 Weight (Pounds): 166 Result Diagram: 06/26/18210906/26/182109 Condition: Improved Discharge: Assisted Living Discharge Instructions Home Meds Active Scripts Oseltamivir Phosphate (TAMIFLU) 75 Mg Cap, 75 MG PO BID, #10 CAP Prov:QUIN NICHOLSON DO 06/27/18 Atorvastatin Calcium (LIPITOR) 10 Mg Tab, 20 MG PO QHS, #30 TAB Prov:NGOC VAZQUEZ MD 04/16/14 Reported Medications Sodium Chloride (Saline Mist) 0.65 % Dorris, 1-2 NA QID 06/27/18 Dextromethorphan Hb/Doxylamine (Robitussin Nighttime Cough Dm) 30 Mg-12.5 Mg/10 Ml Liquid, 5 ML PO Q4H PRN for COUGH 06/27/18 Guaifenesin (MUCINEX) 600 Mg Tablet.er, 600 MG PO BID PRN for COUGH 06/27/18 Polyethylene Glycol 3350 (MIRALAX) 17 Gm Powd.pack, 17 GM PO PRN PRN for CONSTIPATION, PKT 06/27/18 Mag Hydrox/Aluminum Hyd/Simeth (Maalox Advanced Suspension) 200 Mg-200 Mg-20 Mg/5 Ml Oral.susp, 15 ML PO Q4H PRN for GAS/HEARTBURN 06/27/18 Lidocaine HCl VISCOUS 2% (Lidocaine Viscous) 2 % Solution, TOP PRN PRN for PAIN 06/27/18 [DuoNeb] No Conflict Check, INH PRN for SHORTNESS OF BREATH 06/27/18 Loperamide Hcl (LOPERAMIDE) 2 Mg Capsule, 2 MG PO BID PRN for DIARRHEA, CAPSULE 06/27/18 Cyclobenzaprine Hcl (CYCLOBENZAPRINE HCL) 10 Mg Tablet, 5 MG PO BID PRN for MUSCLE SPASMS, #9 TAB 06/27/18 Docusate Sodium (COLACE) 100 Mg Capsule, 50 MG PO DAILY PRN for CONSTIPATION, CAPSULE 06/27/18 Dextran 70/Hypromellose (ARTIFICIAL TEARS) 1 Each Droperette, 1 EACH OP 06/27/18 Acetaminophen (TYLENOL) 325 Mg Tablet, 325-650 MG PO Q4H PRN for PAIN OR FEVER 100 OR GREATER, TAB 06/27/18 Simvastatin (SIMVASTATIN) 40 Mg Tablet, 40 MG PO HS, TAB 06/27/18 Sertraline Hcl (SERTRALINE HCL) 25 Mg Tablet, 1 TAB PO QDAY, TAB 06/27/18 Sertraline Hcl (SERTRALINE HCL) 100 Mg Tablet, 1 TAB PO QDAY, TAB 06/27/18 Quetiapine Fumarate (QUETIAPINE FUMARATE) 50 Mg Tablet, 50 MG PO HS 06/27/18 Primidone (PRIMIDONE) 50 Mg Tab, 25 MG FT, TAB 06/27/18 Pioglitazone Hcl (PIOGLITAZONE HCL) 30 Mg Tablet, 30 MG PO QDAY 06/27/18 Oxybutynin Chloride (OXYBUTYNIN CHLORIDE) 5 Mg Tablet, 5 MG PO BID, TAB 06/27/18 Meloxicam (MELOXICAM) 7.5 Mg Tablet, 7.5 MG PO QDAY 06/27/18 Levothyroxine Sodium (LEVOTHYROXINE SODIUM) 100 Mcg Tablet, 88 MCG PO QDAY, TAB 06/27/18 Sitagliptin Phosphate (JANUVIA) 100 Mg Tablet, 100 MG PO QDAY 06/27/18 Fluticasone/Vilanterol 100/25 Mcg/Inh (BREO ELLIPTA 100/25 MCG) 1 Each Aer.pow.ba, 1 INH INH QDAY, INH 06/27/18 Methotrexate Sodium (METHOTREXATE) 25 Mg/1 Ml Vial, 0.4 ML SC QWEEK, VIAL 04/12/14 Donepezil Hcl (Donepezil Hcl) 10 Mg Tablet, 10 MG PO HS 09/07/10 Lamotrigine (Lamotrigine) 100 Mg Tablet, 150 MG PO HS 09/09/10 Folic Acid (Folic Acid) 1 Mg Tab, 1 MG PO QDAY 09/07/10 Cholecalciferol (Vitamin D3) 1,000 Unit Capsule, 2000 UNIT PO QDAY 09/07/10 Discontinued Reported Medications Meloxicam (MELOXICAM) 7.5 Mg Tablet, 7.5 MG PO QDAY 06/27/18 Bay Flavor (BAY CONCENTRATE) 100 Ml Syrup, 100 ML PO HS PRN for COUGH 06/27/18 Benzonatate 100 Mg Cap (TESSALON PERLE 100 MG CAP) 100 Mg Capsule, 100 MG PO HS PRN for COUGH, #15 CAP 06/27/18 Sertraline Hcl (SERTRALINE HCL) 100 Mg Tablet, 1 TAB PO HS, TAB TAKE ONE TABLET BY MOUTH EVERY DAY 04/12/14 Divalproex Sodium (DEPAKOTE ER) 500 Mg Tab.er.24h, 500 MG PO HS, TAB TAKE 1 TABLET BY MOUTH DAILY 04/12/14 Tenino-3 Fatty Acids/Fish Oil (Tenino-3 1,000 Mg Softgel) 1 Each Capsule, 2 EACH PO BID 09/09/10 Levothyroxine Sodium (Synthroid) 100 Mcg Tablet, 100 MCG PO HS 09/07/10 Quetiapine Fumarate (Seroquel) 200 Mg Tablet, 100 MG PO HS 09/09/10 Primidone (Primidone) 50 Mg Tablet, 75 MG PO HS 09/09/10 Discontinued Scripts [Cefuroxime Axetil] 250 MG TAB No Conflict Check, 250 MG PO BID, #10 TAB Prov:NGOC VAZQUEZ MD 04/16/14 [Aspirin] 81 MG TABEC No Conflict Check, 81 MG PO QDAY, #30 TAB Prov:NGOC VAZQUEZ MD 04/16/14 Diet: Diabetic Activity: As Tolerated Venous Thromboembolism Antithrombotics Is Pt On Any Antithrombotics?: No QUIN NICHOLSON DO Jun 27, 2018 10:22
[2018-06-27 13:48] VITALS: Ht 165.1 cm; Wt 75.3 kg
[2018-06-27 14:20] VITALS: BP 118/62
== END 2018-06-27 15:05 | disposition home or self-care (01) | DRG 194 ==
LOC: ER 21:04 → MED 06-27 00:04
PROVIDERS: ADMIT Internal Medicine; ATTEND Internal Medicine
DX: J10.1 Influenza due to other identified influenza virus with other respiratory manifestations (principal); E87.1 Hypo-osmolality and hyponatremia; R09.02 Hypoxemia; E11.9 Type 2 diabetes mellitus without complications; Z66 Do not resuscitate; F31.9 Bipolar disorder, unspecified; R25.1 Tremor, unspecified; F03.90 Unspecified dementia, unspecified severity, without behavioral disturbance, psychotic disturbance, mood disturbance, and anxiety; E78.5 Hyperlipidemia, unspecified; E03.9 Hypothyroidism, unspecified; M06.9 Rheumatoid arthritis, unspecified; W18.30XA Fall on same level, unspecified, initial encounter; Y92.129 Unspecified place in nursing home as the place of occurrence of the external cause; Z87.440 Personal history of urinary (tract) infections; Z79.84 Long term (current) use of oral hypoglycemic drugs; Z86.711 Personal history of pulmonary embolism
CPT/HCPCS: 36415; 36416; 70450; 71045; 72125; 80164; 81001; 82040; 82247; 82310; 82374; 82435; 82565; 82947; 82948; 83605; 84075; 84132; 84155; 84295; 84450; 84460; 84520; 85025; 87040; 87077; 87088; 87186; 87502; 93005; 94640; 96361; 96372; 96374; 99285; J0696; J1650; J7030

== ENCOUNTER → 2018-06-26 | Outpatient (CLI) | payer MEDICARE, MEDICAID ==
[~2018-06-26] MED LIST changes: +ACET-1966 PO; +BENZ100C4 PO; +CYCL10TA29 PO; +DEXT1DRO15 OP; +DEXT237L PO; +DOCU-416 PO; +DuoNeb INH; +FLAV100L PO; +FLUT1AER INH; +GUAI600T57 PO; +LEVO-3 PO; +LIDO15SO2 TOP; +LOPE2CAP88 PO; +MAG-65 PO; +MELO-205 PO; +OSE75 PO; +OXYB5TAB86 PO; +PIOG30TA71 PO; +POLY17PO25 PO; +PRIM50TA FT; +QUET50TA PO; +SERT25TA90 PO; +SIMV-54 PO; +SITA100T PO; +SODI45SP29
[2018-06-27 13:48] VITALS: BMI 27.6
== END ==
LOC: AMB 20:34
PROVIDERS: ATTEND Nurse Practitioner
DX: R41.82 Altered mental status, unspecified (principal); R09.02 Hypoxemia; R53.1 Weakness
CPT/HCPCS: A0425; A0429

== ENCOUNTER → 2018-08-16 | Outpatient (CLI) | payer MEDICARE, MEDICAID ==
[2018-06-27 13:48] VITALS: BMI 27.6
[~2018-08-16] MED LIST changes: +ACET-1966 PO; +BENZ100C4 PO; +CYCL10TA29 PO; +DEXT1DRO15 OP; +DEXT237L PO; +DOCU-416 PO; +DuoNeb INH; +FLAV100L PO; +FLUT1AER INH; +GUAI600T57 PO; +LEVO-3 PO; +LIDO15SO2 TOP; +LOPE2CAP88 PO; +MAG-65 PO; +MELO-205 PO; +OSE75 PO; +OXYB5TAB86 PO; +PIOG30TA71 PO; +POLY17PO25 PO; +PRIM50TA FT; +QUET50TA PO; +SERT25TA90 PO; +SIMV-54 PO; +SITA100T PO; +SODI45SP29
== END ==
LOC: ZZSPRING 02:37
PROVIDERS: ATTEND Physician Assistant
DX: Z51.81 Encounter for therapeutic drug level monitoring (principal)
CPT/HCPCS: 36415; 80175

== ENCOUNTER → 2018-09-13 | Outpatient (REF) | payer MEDICARE, MEDICAID ==
[2018-06-27 13:48] VITALS: BMI 27.6
== END ==
LOC: ZZSENDIN 09:46
PROVIDERS: ATTEND Family Medicine
DX: R60.0 Localized edema (principal)
CPT/HCPCS: 83880

== ENCOUNTER → 2018-09-13 | Outpatient (CLI) | payer MEDICARE, MEDICAID ==
[2018-06-27 13:48] VITALS: BMI 27.6
--- NOTE | 2018-09-13 12:20 | RADIOLOGY IMAGING REPORT ---
[place] [facility] [place]: Christine Ornelas : 1940 MR: [id number] V: [id number] EXAM DATE: ORDERING PHYSICIAN: CHUCK LINTON TECHNOLOGIST: Location: [facility] Patient: Christine Ornelas : 1940 Visit/Account:[id number] Date of Sevice: 09/13/2018 CT CHEST W/O CONTRAST HISTORY: Chronic cough TECHNIQUE: CT chest without intravenous contrast. Contiguous helical images was performed from the l kayce apices to below the diaphragm. One of the following dose optimization techniques was utilized in the performance of this exam: Autom ated exposure control; adjustment of the mA and/or kV according to the patient's size; or use of an i terative reconstruction technique. Specific details can be referenced in the facility's radiology C T exam operational policy. CONTRAST: None. COMPARISON: Chest x-ray 06/27/2018 FINDINGS: Heart/vessels: Heart is enlarged. Calcification of the thoracic arch and coronary vessels is noted Mediastinum: Negative. Lymph nodes: Slightly prominent mediastinal lymph nodes could be reactive. Index lymph nodes describ ed below. 2.5 x 0.7 cm prevascular lymph node (2/33) Precarinal lymph node measures 1.9 x 0.9 cm (2/37) Lungs/pleura: Patient has a background of mild bronchiectasis. There are focal areas of consolidatio n in the lingula, right middle lobe and right lower lobe which could represent pneumonia. Trace right -sided pleural effusion is noted. Visualized upper abdomen: 7 mm hypodensity in the dome of liver could represent a cyst but is not en tirely characterized. Bones/soft tissues: Patient is osteopenic with degenerative changes. Mild superior plate compression deformities of T12, T9 and T3 are chronic when compared to prior chest x-rays IMPRESSION: 1. Focal areas of consolidation in the left lingula, right middle lobe and right lower lobe with a s mall right effusion could represents pneumonia. 2. Mild bronchiectasis. 3. Slightly prominent mediastinal lymph nodes could be reactive. Report Dictated By: Jaswinder Yepez MD at 09/13/2018 12:07 PM Report E-Signed By: Jaswinder Yepez MD at 09/13/2018 12:16 PM WSN:[id number]
== END ==
LOC: CT 11:07
PROVIDERS: ATTEND Family Medicine
DX: J98.09 Other diseases of bronchus, not elsewhere classified (principal)
CPT/HCPCS: 71250

== ENCOUNTER → 2018-10-11 | Outpatient (CLI) | payer MEDICARE, MEDICAID ==
[2018-06-27 13:48] VITALS: BMI 27.6
[2018-10-11 10:20] LABS: LDL CHOLESTEROL 100 mg/dl
== END ==
LOC: ZZSPRING 01:38
PROVIDERS: ATTEND Physician Assistant
DX: E78.00 Pure hypercholesterolemia, unspecified (principal); E11.9 Type 2 diabetes mellitus without complications; E03.9 Hypothyroidism, unspecified
CPT/HCPCS: 36415; 82040; 82247; 82310; 82374; 82435; 82465; 82565; 82947; 83036; 83718; 84075; 84132; 84155; 84295; 84443; 84450; 84460; 84478; 84520